=== PATIENT | female | born 1965 | race Caucasian/White ===

== ENCOUNTER 2022-03-07 12:50 | Emergency (ER) | payer MEDICAID ==
[~2022-03-07] VITALS: Ht 162.6 cm; Wt 72.6 kg
[2022-03-07 12:54] VITALS: BP 146/100
[2022-03-07] MEDS ORDERED: SULF-59 PO (13:39)
--- NOTE | 2022-03-07 13:57 | NUR ---
SPOKE TO OLI PORTER STATES WILL COME PICK HER UP
--- NOTE | 2022-03-07 14:12 | NUR ---
Patient discharged with v/s stable. Written and verbal after care instructions given and explained. Patient alert, oriented and verbalized understanding of instructions. Wheel Chair Assisted with by caregiver. All questions addressed prior to discharge. ID band removed. Patient advised to follow up with PMD. Rx of BACTRIM given. Patient educated on indication of medication including possible reaction and side effects. Opportunity to ask questions provided and answered.
== END 2022-03-07 14:12 ==
LOC: MED 12:50
DX: L03.90 Cellulitis, unspecified (principal); Z20.822 Contact with and (suspected) exposure to COVID-19; B34.9 Viral infection, unspecified; I10 Essential (primary) hypertension; F15.90 Other stimulant use, unspecified, uncomplicated
CPT/HCPCS: 99283

== ENCOUNTER 2022-05-09 17:07 | Emergency (ER) | payer MEDICAID, OTHER ==
[~2022-05-09] VITALS: Ht 157.5 cm; Wt 93.0 kg
[~2022-05-09 17:07] MED LIST: SULF-59 PO
[2022-05-09 17:10] VITALS: BP 146/96
[2022-05-09] MEDS ORDERED: BACITRACIN OINT 500 UNITS/GM PKT TP ONE (17:35)
--- NOTE | 2022-05-09 17:36 | NUR ---
PT GIVEN ICE PACK. WOUND TO R EYEBROW IRRIGATED AND DRESSED WITH BANDAID.
[2022-05-09] MEDS ORDERED: BACI-416 TP (17:38)
[2022-05-09] MEDS ORDERED: ACET-10509 PO (17:38)
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
--- NOTE | 2022-05-09 19:20 | NUR ---
Report and transfer of care endorsed to CAROL Mojica.
--- NOTE | 2022-05-09 20:01 | NUR ---
Patient discharged with v/s stable. Written and verbal after care instructions given and explained to parent/guardian. Parent/Guardian verbalized understanding. Ambulatorysteady gait. All questions addressed prior to discharge. Advised to follow up with PMD.
== END 2022-05-09 20:01 | disposition home or self-care (01) ==
LOC: MED 17:07
DX: S00.83XA Contusion of other part of head, initial encounter (principal); W05.0XXA Fall from non-moving wheelchair, initial encounter; Y93.89 Activity, other specified; Y92.89 Other specified places as the place of occurrence of the external cause; Y99.8 Other external cause status
CPT/HCPCS: 99283

== ENCOUNTER 2022-08-09 08:46 | Emergency (ER) | payer OTHER ==
[~2022-08-09] VITALS: Ht 157.5 cm; Wt 86.2 kg
[~2022-08-09 08:46] MED LIST changes: +ACET-10509 PO; +BACI-416 TP
[2022-08-09 08:47] VITALS: BP 124/91
--- NOTE | 2022-08-09 08:47 | NUR ---
BIBA BLS TO ER BED 8
--- NOTE | 2022-08-09 09:11 | NUR ---
PT BIB [facility]BUL[facility] BLS [facility], PT C/O LLQ PAIN X 5DYS, INTERMIT, PT STATES SHE USES WHEELCHAIR AT HOME.
--- NOTE | 2022-08-09 09:21 | NUR ---
Lab at bedside.
[2022-08-09 09:30] LABS: BASOPHILS # (AUTO) 0.1 K/uL (0.00-0.22); BASOPHILS % (AUTO) 1.2 % (0.0-2.0); EOSINOPHILS # (AUTO) 0.1 K/uL (0-0.4); EOSINOPHILS % (AUTO) 2.3 % (0.0-4.0); HEMATOCRIT 43.2 % (36-48); HEMOGLOBIN 14.4 g/dL (12.0-16.0); LYMPHOCYTES # (AUTO) 1.4 K/uL (2.5-16.5); LYMPHOCYTES % (AUTO) 30.1 % (20.5-51.1); MEAN CORPUSCULAR HEMOGLOBIN 29 pg (27-31); MEAN CORPUSCULAR HGB CONC 33 g/dL (33-37); MEAN CORPUSCULAR VOLUME 85.5 fL (80-94); MONOCYTES # (AUTO) 0.3 K/uL (0.8-1.0); MONOCYTES % (AUTO) 6.4 % (1.7-9.3); NEUTROPHILS # (AUTO) 2.9 K/uL (1.8-7.7); PLATELET COUNT (AUTO) 193 K/uL (140-450); RED BLOOD CELL COUNT(AUTO) 5.05 MIL/uL (4.20-5.40); RED CELL DISTRIBUTION WIDTH 13.6 % (11.6-13.7); WHITE BLOOD COUNT (AUTO) 4.8 K/uL (4.8-10.8)
--- NOTE | 2022-08-09 09:36 | NUR ---
Patient being taken to CT via gurney.
[2022-08-09 09:49] LABS: ALBUMIN 3.4 g/dL (3.4-5.0); ANION GAP 11.5 (8-16); CARBON DIOXIDE 25.3 mmol/L (21-32); CREATININE 1.1 mg/dL (0.6-1.3); POTASSIUM 3.8 mmol/L (3.5-5.1); TOTAL BILIRUBIN 0.8 mg/dL (0.0-1.0)
--- NOTE | 2022-08-09 10:30 | NUR ---
Patient was wheelchair assisted to the restroom.
[2022-08-09 10:52] LABS: APPEARANCE,URINE CLEAR (CLEAR); BILIRUBIN,URINE NEGATIVE (NEGATIVE); BLOOD, URINE NEGATIVE (NEGATIVE); COLOR,URINE YELLOW (YELLOW); LEUKOCYTE ESTERASE ,URINE 1+ (NEGATIVE); NITRITE, URINE NEGATIVE (NEGATIVE); UGLUCOSE NEGATIVE (NEGATIVE)
[2022-08-09 11:32] LABS: RBC,URINE 0-5 /HPF (0-5)
[2022-08-09] MEDS ORDERED: BISA-213 RC ×2 (12:06→12:24)
[2022-08-09] MEDS ORDERED: CEPH-588 PO ×2 (12:06→12:24)
[2022-08-09] MEDS ORDERED: MIRABULK PO ×2 (12:06→12:24)
--- NOTE | 2022-08-09 13:01 | NUR ---
Patient discharged with v/s stable. Written and verbal after care instructions given. Patient alert, oriented and verbalized understanding of instructions. Wheel Chair Assisted with to car. All questions addressed prior to discharge. ID band removed. Patient advised to follow up with PMD. Rx of given; DULCOLAX, KEFLEX, MIRALAX. Opportunity to ask questions provided and answered.
[2022-08-09 13:04] VITALS: BP 135/87
--- NOTE | 2022-08-09 13:05 | NUR ---
The patient's care was reviewed and supervised by Deanne Rubio RN.
== END 2022-08-09 13:01 | disposition home or self-care (01) ==
LOC: MED 08:46
DX: N30.00 Acute cystitis without hematuria (principal); K59.00 Constipation, unspecified; I25.2 Old myocardial infarction; I10 Essential (primary) hypertension; Z86.73 Personal history of transient ischemic attack (TIA), and cerebral infarction without residual deficits; Z86.69 Personal history of other diseases of the nervous system and sense organs; Z79.899 Other long term (current) drug therapy; Z79.2 Long term (current) use of antibiotics
CPT/HCPCS: 36415; 80053; 81001; 83690; 85025; 87086; 99284

== ENCOUNTER 2022-09-03 16:00 | Emergency (ER) | payer OTHER ==
[~2022-09-03] VITALS: Ht 157.5 cm; Wt 74.4 kg
[~2022-09-03 16:00] MED LIST changes: +BISA-213 RC; +CEPH-588 PO; +MIRABULK PO
[2022-09-03 16:05] VITALS: BP 151/86
[2022-09-03] MEDS ORDERED: HYDROcodone/APAP 5/325 MG 1 TAB TAB PO ONE (18:05)
[2022-09-03] MEDS ORDERED: IBUPROFEN 600 MG TAB PO ONE (18:05)
--- NOTE | 2022-09-03 18:13 | NUR ---
C/O LEFT LEG PAIN PO PAIN MED GIVEN
[2022-09-03] MEDS ORDERED: NAPR-54 PO (18:44)
[2022-09-03] MEDS ORDERED: CARB1DRO2 OP (18:47)
[2022-09-03 20:54] VITALS: BP 151/86
--- NOTE | 2022-09-03 20:54 | NUR ---
Patient discharged with v/s stable. Written and verbal after care instructions given and explained. Patient alert, oriented and verbalized understanding of instructions. Wheel Chair Assisted with to car. All questions addressed prior to discharge. ID band removed. Patient advised to follow up with PMD. Rx of naprosyn given. Patient educated on indication of medication including possible reaction and side effects. Opportunity to ask questions provided and answered.
== END 2022-09-03 20:54 | disposition home or self-care (01) ==
LOC: MED 16:00
DX: S80.02XA Contusion of left knee, initial encounter (principal); I10 Essential (primary) hypertension; N18.9 Chronic kidney disease, unspecified; Z86.73 Personal history of transient ischemic attack (TIA), and cerebral infarction without residual deficits; Z79.899 Other long term (current) drug therapy; X58.XXXA Exposure to other specified factors, initial encounter; Y93.89 Activity, other specified; Y92.89 Other specified places as the place of occurrence of the external cause; Y99.8 Other external cause status
CPT/HCPCS: 73562; 73590; 99284

== ENCOUNTER 2022-09-16 13:12 | Inpatient (IN) | payer OTHER ==
[~2022-09-16] VITALS: Ht 162.6 cm; Wt 74.4 kg
[~2022-09-16 13:12] MED LIST changes: +CARB1DRO2 OP; +NAPR-54 PO
[2022-09-16 13:17] VITALS: BP 138/78
[2022-09-16] MEDS ORDERED: MORPHINE SULFATE 2 MG/ML SYR IVP STA (13:24)
--- NOTE | 2022-09-16 13:28 | NUR ---
ACUTE ONSET LEFT LEG PAIN , SWELLING , ERYTHEMA + PULSES, SX STARTED TODAY, SHE ALSO MENTION FALLING AND LANDC ON SAME LEG 2 DAYS AGO
[2022-09-16 13:53] LABS: BASOPHILS % (AUTO) 0.7 % (0.0-2.0); EOSINOPHILS # (AUTO) 0.1 K/uL (0-0.4); EOSINOPHILS % (AUTO) 0.9 % (0.0-4.0); HEMATOCRIT 38.8 % (36-48); LYMPHOCYTES # (AUTO) 0.9 K/uL (2.5-16.5); LYMPHOCYTES % (AUTO) 15.8 % (20.5-51.1); MEAN CORPUSCULAR HEMOGLOBIN 29 pg (27-31); MEAN CORPUSCULAR HGB CONC 34 g/dL (33-37); MEAN CORPUSCULAR VOLUME 85.7 fL (80-94); MONOCYTES # (AUTO) 0.4 K/uL (0.8-1.0); MONOCYTES % (AUTO) 6.1 % (1.7-9.3); NEUTROPHILS # (AUTO) 4.4 K/uL (1.8-7.7); NEUTROPHILS % (AUTO) 76.5 % (42.2-75.2); PLATELET COUNT (AUTO) 223 K/uL (140-450); RED BLOOD CELL COUNT(AUTO) 4.53 MIL/uL (4.20-5.40); RED CELL DISTRIBUTION WIDTH 13.2 % (11.6-13.7); WHITE BLOOD COUNT (AUTO) 5.8 K/uL (4.8-10.8)
[2022-09-16 14:05] LABS: ALBUMIN 3.1 g/dL (3.4-5.0); ANION GAP 13.1 (8-16); CARBON DIOXIDE 25.5 mmol/L (21-32); POTASSIUM 3.6 mmol/L (3.5-5.1); TOTAL BILIRUBIN 0.9 mg/dL (0.0-1.0)
--- NOTE | 2022-09-16 14:27 | NUR ---
Angie biswas in ED - 09/16/22 at 1430 by [email or web address] PT LEFT WITHOUT BEING SEEN BY PROVIDER
--- NOTE | 2022-09-16 14:27 | NUR ---
PT LEFT WITHOUT BEING SEEN BY PROVIDER
--- NOTE | 2022-09-16 14:30 | NUR ---
X-Ray at bedside.
--- NOTE | 2022-09-16 15:58 | NUR ---
Patient taken to CT via gurney.
--- NOTE | 2022-09-16 16:14 | NUR ---
Patient returned from CT.
[2022-09-16] MEDS ORDERED: VANCOMYCIN 1,000 MG in DEXTROSE 5% 250 ML IV ONE (17:30)
[2022-09-16] MEDS ORDERED: NACL 0.9% 500 ML IV ONE (17:30)
[2022-09-16] MEDS ORDERED: VANCOMYCIN 1,000 MG VIAL ONE (17:32)
[2022-09-16] MEDS ORDERED: BUPR-160 PO (17:46)
[2022-09-16] MEDS ORDERED: CARV25TA PO (17:46)
[2022-09-16] MEDS ORDERED: ATOR40TA PO (17:46)
[2022-09-16] MEDS ORDERED: AMLO10TA PO (17:46)
[2022-09-16] MEDS ORDERED: LEVE500T18 PO (17:46)
--- NOTE | 2022-09-16 17:46 | NUR ---
med rec complete
--- NOTE | 2022-09-16 18:27 | NUR ---
PATIENT WAS OFFERED A SANDWICH AND JUICE. PATIENT IS SITTING UP EATING.
--- NOTE | 2022-09-16 19:20 | NUR ---
Report given to CRAOL Denise for transfer of care.
--- NOTE | 2022-09-16 19:30 | NUR ---
Patient resting in bed, A/Ox4, chest rise and fall symmetrical, no c/o pain or s/s distress, on monitor.
[2022-09-16] MEDS ORDERED: MAG SULF 2000 MG/WATER PREMIX 50 ML IV PRN (20:25)
[2022-09-16] MEDS ORDERED: MAGNESIUM OXIDE 400 MG TAB PO PRN (20:25)
[2022-09-16] MEDS ORDERED: VANCOMYCIN PER PHARMACY MC PRN (20:25)
[2022-09-16] MEDS ORDERED: MORPHINE SULFATE 4 MG/ML SYR IVP PRN (20:25)
[2022-09-16] MEDS ORDERED: KCL 20 MEQ IN 100 mL PREMIX 200 ML IV PRN (20:25)
[2022-09-16] MEDS ORDERED: ONDANSETRON 4 MG/2 ML VIAL IVP PRN (20:25)
[2022-09-16] MEDS ORDERED: POTASSIUM CHLORIDE 10 MEQ TABER PO PRN (20:25)
[2022-09-16] MEDS ORDERED: ACETAMINOPHEN 325 MG TAB PO PRN (20:25)
--- NOTE | 2022-09-16 21:00 | NUR ---
Patient resting in bed, A/Ox4, chest rise and fall symmetrical, no c/o pain or s/s distress, on monitor.
--- NOTE | 2022-09-16 23:30 | NUR ---
Patient resting in bed, A/Ox4, chest rise and fall symmetrical, no c/o pain or s/s distress, on monitor.
--- NOTE | 2022-09-17 02:10 | NUR ---
Patient resting in bed, A/Ox4, chest rise and fall symmetrical, no c/o pain or s/s distress, on monitor.
--- NOTE | 2022-09-17 04:17 | NUR ---
Patient resting in bed, A/Ox4, chest rise and fall symmetrical, no c/o pain or s/s distress, on monitor.
[2022-09-17 06:38] LABS: BASOPHILS # (AUTO) 0.1 K/uL (0.00-0.22); BASOPHILS % (AUTO) 1.1 % (0.0-2.0); EOSINOPHILS # (AUTO) 0.1 K/uL (0-0.4); EOSINOPHILS % (AUTO) 1.5 % (0.0-4.0); HEMATOCRIT 38.7 % (36-48); HEMOGLOBIN 12.8 g/dL (12.0-16.0); LYMPHOCYTES # (AUTO) 1.1 K/uL (2.5-16.5); MEAN CORPUSCULAR HEMOGLOBIN 28 pg (27-31); MEAN CORPUSCULAR HGB CONC 33 g/dL (33-37); MONOCYTES # (AUTO) 0.4 K/uL (0.8-1.0); MONOCYTES % (AUTO) 7.4 % (1.7-9.3); NEUTROPHILS # (AUTO) 3.5 K/uL (1.8-7.7); PLATELET COUNT (AUTO) 245 K/uL (140-450); RED CELL DISTRIBUTION WIDTH 13.1 % (11.6-13.7); WHITE BLOOD COUNT (AUTO) 5.1 K/uL (4.8-10.8)
--- NOTE | 2022-09-17 06:50 | NUR ---
ORTHO DR. GONZALEZ BEDSIDE FOR PROCEDURE
--- NOTE | 2022-09-17 06:50 | NUR ---
Patient resting in bed, A/Ox4, chest rise and fall symmetrical, no c/o pain or s/s distress, on monitor.
[2022-09-17 06:54] LABS: ALBUMIN 2.9 g/dL (3.4-5.0); ANION GAP 13.7 (8-16); CARBON DIOXIDE 23.8 mmol/L (21-32); CREATININE 0.8 mg/dL (0.6-1.3); MAGNESIUM 1.8 mg/dL (1.8-2.4); POTASSIUM 3.5 mmol/L (3.5-5.1)
[2022-09-17 07:06] LABS: PROTHROMBIN TIME 10.6 secs (10.8-13.4)
--- NOTE | 2022-09-17 07:15 | NUR ---
Pt report given to Jacque MEDINA. Jacque MEDINA verbalized uderstanding of report, no further questions.
--- NOTE | 2022-09-17 08:56 | NUR ---
PATIENT HAS BEEN SCREENED AND CATEGORIZED MODERATE NUTRITION RISK. PATIENT WILL BE SEEN WITHIN 3-5 DAYS OF ADMISSION. 09/19/22-09/21/[address]
--- NOTE | 2022-09-17 09:10 | NUR ---
Patient resting in bed, A/Ox4, chest rise and fall symmetrical, no c/o pain or s/s distress, on monitor.
--- NOTE | 2022-09-17 10:00 | NUR ---
Patient will be admitted to care of MD Caitie. Admited to [facility]. Will go to [id number] . Belongings list completed. Report to arnav Molina @4515.
--- NOTE | 2022-09-17 10:00 | NUR ---
Note true in EDM - 09/17/22 at 1036 by [email or web address] Patient will be admitted to care of MD Caitie. Admited to med surg. Will go to room 106A. Belongings list completed. Report to Tracy josé.
--- NOTE | 2022-09-17 10:10 | NUR ---
RECEIVED REPORT FROM ER NURSE, PT ARRIVED IN A WHEELCHAIR, ABLE TO TRANSFER TO BED. ORIENTED TO THE NEW ENVIRONMENT, CALL LIGHT, TV, BED MECHANICS. PT IS STABLE AND WILL CONTINUE THE POC.
[2022-09-17] MEDS: VANCOMYCIN HCL 750 MG in DEXTROSE 5% 250 ML IV SCH ×2 (10:59→20:55)
[2022-09-17 16:00] VITALS: BP 124/76
[2022-09-17] MEDS ORDERED: LORazepam 1 MG TAB PO PRN (18:45)
--- NOTE | 2022-09-17 19:25 | NUR ---
GAVE ENDORSEMENT TO SECURITIES TRADER NURSE FOR CONTINUITY OF CARE. PT IS AWAKE AND STABLE.
[2022-09-17 20:00] VITALS: BP 133/86
[2022-09-17] MEDS: HYDROcodone/APAP 5/325 MG 1 TAB TAB PO PRN (20:55)
[2022-09-18 04:00] VITALS: BP 124/87
[2022-09-18] MEDS ORDERED: BUPIVACAINE-MPF 0.25% 30 ML VIAL INJ ONE (07:28)
[2022-09-18] MEDS ORDERED: LIDOCAINE/EPI MPF 1%1:200000 30 ML VIAL INJ ONE (07:28)
[2022-09-18] MEDS ORDERED: DESFLURANE 240 ML BTL INH ONE ×2 (07:34→20:50)
[2022-09-18] MEDS ORDERED: fentaNYL citrate 0.05 MG/ML VIAL ONE (07:35)
[2022-09-18] MEDS ORDERED: ONDANSETRON 4 MG/2 ML VIAL ONE (07:41)
[2022-09-18] MEDS ORDERED: PROPOFOL 200 MG/20 ML VIAL IV ONE (07:41)
[2022-09-18] MEDS ORDERED: DEXAMETHASONE 4 MG/ML VIAL ONE (07:41)
[2022-09-18 08:00] VITALS: BP 127/83
--- NOTE | 2022-09-18 09:14 | NUR ---
RECEIVE PATIENT FROM I&D PROCEDURE THAT PATIENT STABLE WITH NO ACUTE DISTRESS BUT PATIENT STATE LEG (PROCEDURE DONE AT THAT LEG) IS HURTING. DRESS INTACT. WILL CONTINUE TO MONITOR Addendum: 09/18/22 at 0922 by Mary Teran RN PER OR NURSE THAT PATIENT TOLERATE PROCEDURE, VITAL AT 0857 (T-P-R: 97.1-61-20, BP: 126/91 O22 SATE 97% IN RA) WILL CONTINUE TO MONITOR
[2022-09-18 10:05] LABS: BASOPHILS % (AUTO) 0.7 % (0.0-2.0); EOSINOPHILS # (AUTO) 0.1 K/uL (0-0.4); EOSINOPHILS % (AUTO) 0.8 % (0.0-4.0); HEMATOCRIT 38.9 % (36-48); HEMOGLOBIN 12.8 g/dL (12.0-16.0); LYMPHOCYTES # (AUTO) 0.8 K/uL (2.5-16.5); LYMPHOCYTES % (AUTO) 13.3 % (20.5-51.1); MEAN CORPUSCULAR HEMOGLOBIN 29 pg (27-31); MEAN CORPUSCULAR HGB CONC 33 g/dL (33-37); MEAN CORPUSCULAR VOLUME 86.3 fL (80-94); MONOCYTES # (AUTO) 0.2 K/uL (0.8-1.0); MONOCYTES % (AUTO) 2.8 % (1.7-9.3); NEUTROPHILS # (AUTO) 4.9 K/uL (1.8-7.7); NEUTROPHILS % (AUTO) 82.4 % (42.2-75.2); PLATELET COUNT (AUTO) 240 K/uL (140-450); RED BLOOD CELL COUNT(AUTO) 4.51 MIL/uL (4.20-5.40); WHITE BLOOD COUNT (AUTO) 5.9 K/uL (4.8-10.8)
[2022-09-18 10:23] LABS: ALBUMIN 3.1 g/dL (3.4-5.0); ANION GAP 12.7 (8-16); CREATININE 0.8 mg/dL (0.6-1.3); MAGNESIUM 1.8 mg/dL (1.8-2.4); POTASSIUM 3.7 mmol/L (3.5-5.1); TOTAL BILIRUBIN 0.9 mg/dL (0.0-1.0)
[2022-09-18 10:25] LABS: PROTHROMBIN TIME 10.8 secs (10.8-13.4)
[2022-09-18] MEDS: VANCOMYCIN HCL 750 MG in DEXTROSE 5% 250 ML IV SCH ×2 (14:41→21:40)
--- NOTE | 2022-09-18 15:36 | NUR ---
DC PLANNING 57 Y.O.FEMALE PATIENT ADMITTED TO TELEMETRY FOR LEFT LEG SWELLING AND PAIN.PATIENT HAS HX OF CVA WITH RESIDUAL LEFT SIDED DEFICITS ,HTN,CKD,AND HX OF SEIZURES.PATIENT IS COVID (-).CXR- NEGATIVE FOR CARDIO PULM DISEASE .VENOUS DOPPLER - NO EVIDENCE OF DEEP VEIN THROMBOSIS.TIBIA-FIBULA XRAY-NEGATIVE.CT SCAN (+) FOR MASS.I AND D OF THE LESION DONE TODAY BY .BARRY,ID ALSO ON BOARD.CM TO FOLLOW.DC PLAN TO HOME WHEN PATIENT RESPONDS TO [place].CM TO FOLLOW. Addendum: 09/19/22 at 1452 by BIRGIT CHURCH CM RECEIVED ORDER FOR PATIENT TO GO TO SNF FOR PT AND WOUND CARE. FAXED ALL PAPERWORK TO [facility] AND [facility]. SPOKE WITH CIERA FROM [facility] LOCATED AT [address] [place], [place] [id number]. PATIENT WAS ACCEPTED AND WILL BE GOING TO ROOM 42-B UNDER DR WILLAMS. AUTH IS BEING REQUESTED FROM DANIELE AT [facility] WHO SAID SHE WILL CALL US BACK WITH THE INFORMATION NEEDED IF APPROVED. Addendum: 06/14/23 at 1545 by BIRGIT CHURCH CM SNF AUTH#[id number] AND TRANSPORTATION AUTH#[id number] GIVEN BY DANIELE AT [facility]. TRANSPORTATION ARRANGED WITH [phone] WITH A [phone] SENIOR ACCOUNT EXECUTIVE TIME. CHARGE NURSE NNEKA, NURSE BROOKE AND PATIENT AWARE OF THE ABOVE INFORMATION.
[2022-09-18 16:00] VITALS: BP 125/85
[2022-09-18] MEDS: HYDROcodone/APAP 5/325 MG 1 TAB TAB PO PRN (19:44)
--- NOTE | 2022-09-18 19:45 | NUR ---
ENDORSE PATIENT IN STABLE CONDITION, AFTER LLE I&D PROCEDURE IN THE MORNING, TO PM SHIFT NURSE WHILE PIV VANESSA FINISH IV VANCOMYCIN
[2022-09-18 20:00] VITALS: BP 143/83
[2022-09-19] MEDS: HYDROcodone/APAP 5/325 MG 1 TAB TAB PO PRN (03:05)
[2022-09-19 04:00] VITALS: BP 106/72
[2022-09-19 07:19] LABS: ANION GAP 16.4 (8-16); CARBON DIOXIDE 22.1 mmol/L (21-32); CREATININE 0.9 mg/dL (0.6-1.3); POTASSIUM 3.5 mmol/L (3.5-5.1); TOTAL BILIRUBIN 0.8 mg/dL (0.0-1.0)
[2022-09-19 07:26] LABS: BASOPHILS % (AUTO) 0.6 % (0.0-2.0); EOSINOPHILS % (AUTO) 0.3 % (0.0-4.0); HEMATOCRIT 39.1 % (36-48); HEMOGLOBIN 13.3 g/dL (12.0-16.0); LYMPHOCYTES # (AUTO) 2.1 K/uL (2.5-16.5); LYMPHOCYTES % (AUTO) 28.1 % (20.5-51.1); MEAN CORPUSCULAR HEMOGLOBIN 29 pg (27-31); MEAN CORPUSCULAR HGB CONC 34 g/dL (33-37); MEAN CORPUSCULAR VOLUME 84.9 fL (80-94); MONOCYTES # (AUTO) 0.6 K/uL (0.8-1.0); NEUTROPHILS # (AUTO) 4.8 K/uL (1.8-7.7); PLATELET COUNT (AUTO) 289 K/uL (140-450); RED BLOOD CELL COUNT(AUTO) 4.61 MIL/uL (4.20-5.40); RED CELL DISTRIBUTION WIDTH 12.7 % (11.6-13.7); WHITE BLOOD COUNT (AUTO) 7.6 K/uL (4.8-10.8)
[2022-09-19 07:39] LABS: ALBUMIN 3.4 g/dL (3.4-5.0)
[2022-09-19 08:00] VITALS: BP 111/78
[2022-09-19] MEDS ORDERED: CEPH-588 PO (08:29)
[2022-09-19] MEDS ORDERED: levETIRAcetam 500 MG TAB PO SCH (09:00)
[2022-09-19] MEDS ORDERED: carvediloL 6.25 MG TAB PO SCH (09:00)
[2022-09-19] MEDS: VANCOMYCIN HCL 750 MG in DEXTROSE 5% 250 ML IV SCH (09:59)
--- NOTE | 2022-09-19 13:37 | NUR ---
09/19/22 RD INITIAL ASSESSMENT COMPLETED PLEASE REFER TO NUTRITION ASSESSMENT UNDER CARE ACTIVITY FOR ESTIMATED NUTRITIONAL NEEDS. 1.RD RECOMMENDS CHANGING REGULAR DIET TO RENAL DIET TOLERATED 2.RD RECOMMENDS WATSON BID FOR CELLULITIS WHICH WILL PROVIDE 160 CALORIES AND 5 GRAMS OF PROTEIN. 3. [address] TO FOLLOW-UP 7 DAYS, LOW RISK JOSE RAFAEL VAUGHN, RD
[2022-09-19 13:53] VITALS: BP 111/78
[2022-09-19 16:00] VITALS: BP 113/61
--- NOTE | 2022-09-19 19:36 | NUR ---
ENDORSE PATIENT IN STABLE CONDITION TO PM SHIFT NURSE AFTER GIVE REPORT TO [facility] KING KAM CAREGIVER FAY. PATIENT AWARE THAT SHE IS DISCHARGING, DISCHARGE CONSENT SIGNED, IV ACCESS WILL KEEP PER RECEIVE FACILITY PERSONAL REQUEST. PM SHIFT NURSE AWARE THAT PATIENT IS IN THE PROCESS TO DISCHARGE. [facility] WILL COME TO CHEMICAL COMPOUNDER PATIENT FOR [facility] AT 2100.
--- NOTE | 2022-09-19 19:37 | NUR ---
RECD. RESTING IN BED, ALREADY DRESSED IN HER OWN CLOTHES, WAITING FOR AMBULANCE TO PICK HER UP. WITH IV SALINE LOCK AT THE RIGHT FOREARM G20, PATENT. VS CHECKED - 97.5 F, BP - 119/96, HR - 59, RR - 18. 02 SAT 97% ON ROOM AIR. DENIES PAIN 0/10.
--- NOTE | 2022-09-19 19:45 | NUR ---
[facility] AM[facility]ULANCE STAFF CAME TO TAKE PATIENT. IV SALINE LOCK TAKEN OUT PER PATIENT REQUEST. REPORT GIVEN TO AMBULANCE PERSONNEL.
--- NOTE | 2022-09-19 20:00 | NUR ---
TAKEN TO HOSPITAL LOBBY PARKING VIA GURNEY IN STABLE CONDITION ACCOMPANIED BY [facility] AMBULANCE STAFF FOR DISCHARGE TO [facility].
[2022-09-19] MEDS ORDERED: ATORVASTATIN 20 MG TAB PO SCH (21:00)
== END 2022-09-19 20:00 | DRG 364 ==
LOC: MED 13:12 → MMU 20:25 → MTU 20:31
PROVIDERS: ADMIT Internal Medicine; ATTEND Internal Medicine
PROC: 0J9P0ZZ Drainage of Left Lower Leg Subcutaneous Tissue and Fascia, Open Approach (ICD-10-PCS; principal; 2022-09-18 07:30)
DX: S80.12XA Contusion of left lower leg, initial encounter (principal); E44.0 Moderate protein-calorie malnutrition; I69.354 Hemiplegia and hemiparesis following cerebral infarction affecting left non-dominant side; N18.9 Chronic kidney disease, unspecified; L03.116 Cellulitis of left lower limb; G40.909 Epilepsy, unspecified, not intractable, without status epilepticus; Z20.822 Contact with and (suspected) exposure to COVID-19; X58.XXXA Exposure to other specified factors, initial encounter; I12.9 Hypertensive chronic kidney disease with stage 1 through stage 4 chronic kidney disease, or unspecified chronic kidney disease; Z79.899 Other long term (current) drug therapy; Y93.89 Activity, other specified; Y92.89 Other specified places as the place of occurrence of the external cause; Y99.8 Other external cause status; Z68.28 Body mass index [BMI] 28.0-28.9, adult
CPT/HCPCS: 36415; 71045; 73590; 73700; 80053; 80202; 83605; 83735; 85025; 85610; 85651; 85730; 86140; 87040; 87070; 87075; 87081; 87205; 93005; 93971; 96361; 96374; 96375; 97110; 97112; 97116; 97530; 99285; J0696; J1100; J2001; J2270; J2405; J2704; J3010; J3370; J3490; J7060; J7120; Q0092